=== PATIENT | female | born 1990 | race Two or more races ===

== ENCOUNTER 2021-01-08 08:59 | Emergency (ER) | payer MEDICAID ==
[~2021-01-08] VITALS: Ht 152.4 cm; Wt 69.9 kg
--- NOTE | 2021-01-08 09:09 | NUR ---
patient came in to the er c/o lower back pain x 1 month, 9/10 pain scale, 4mos , G2,P1,A1. On room air, breathing evenly and unlabored. kept comfortable, will continue to monitor accordingly.
[2021-01-08] MEDS ORDERED: ACETAMINOPHEN ES 500 MG TABLET ONE (09:29)
[2021-01-08] MEDS ORDERED: ACETAMINOPHEN ES 500 MG TABLET PO ONE (09:30)
[2021-01-08 09:50] LABS: BILIRUBIN,URINE Negative (NEGATIVE); COLOR,URINE YELLOW (YELLOW); LEUKOCYTE ESTERASE ,URINE Trace (NEGATIVE); NITRITE, URINE Negative (NEGATIVE); PROTEIN,URINE Negative (NEGATIVE); UGLUCOSE Negative (NEGATIVE); UROBILINOGEN,URINE 0.2 EU/dL (0.2)
[2021-01-08 10:02] LABS: BACTERIA,URINE Few /HPF (None Seen); RBC,URINE 0-2 /HPF (0-2); SQUAMOUS EPITHELIAL CELL,UR Many /HPF (None Seen)
[2021-01-08 10:47] VITALS: BP 118/77
--- NOTE | 2021-01-08 10:47 | NUR ---
Patient discharged to home in stable condition. Written and verbal after care instructions given. Patient verbalizes understanding of instruction.
== END 2021-01-08 10:47 | disposition home or self-care (01) ==
LOC: ER 08:59
DX: O26.92 Pregnancy related conditions, unspecified, second trimester (principal); M54.41 Lumbago with sciatica, right side; Z3A.00 Weeks of gestation of pregnancy not specified
CPT/HCPCS: 81001

== ENCOUNTER 2023-09-15 11:16 | Emergency (ER) | payer MEDICAID ==
[~2023-09-15] VITALS: Ht 152.4 cm; Wt 70.3 kg
[2023-09-15 11:26] VITALS: BP 115/77; TEMP 98.1
[2023-09-15] MEDS ORDERED: CIPR7.5D9 LEFT EAR (11:47)
[2023-09-15] MEDS ORDERED: AMOX500C2 PO (11:47)
[2023-09-15 11:57] VITALS: O2SAT 100
== END 2023-09-15 11:57 | disposition home or self-care (01) ==
LOC: ER 11:48
DX: H60.92 Unspecified otitis externa, left ear (principal)